=== PATIENT | female | born 1965 | race Caucasian/White ===

== ENCOUNTER → 2024-09-04 14:24 | Outpatient (REF) | payer SELFPAY | LOC: RAD 14:24 | PROVIDERS: ATTENDING PHYSICIAN Family Medicine | DX: Z13.6 Encounter for screening for cardiovascular disorders (principal) | CPT/HCPCS: 75571 ==

== ENCOUNTER → 2024-11-29 09:59 | Outpatient (REF) | payer OTHER, SELFPAY | LOC: DHSLP 09:59 | PROVIDERS: ATTENDING PHYSICIAN Internal Medicine Critical Care Medicine; FAMILY PHYSICIAN Family Medicine | DX: G47.19 Other hypersomnia (principal); G47.8 Other sleep disorders; R06.83 Snoring | CPT/HCPCS: 95800 ==